=== PATIENT | female | born 1965 | race Caucasian/White ===

== ENCOUNTER 2017-09-27 11:28 | Emergency (ER) | payer SELFPAY ==
[~2017-09-27] VITALS: Ht 162.6 cm; Wt 67.7 kg
[2017-09-27 11:40] VITALS: BP 119/87; Ht 162.6 cm; Wt 67.7 kg
[2017-09-27] MEDS ORDERED: SYNTHROID25 MCG PO (11:43)
[2017-09-27] MEDS ORDERED: CIPRO HC OTIC S10 ML EACH EAR (12:18)
== END 2017-09-27 12:35 | disposition home or self-care (01) ==
LOC: D.ER 11:28
DX: H60.22 Malignant otitis externa, left ear (principal); F17.200 Nicotine dependence, unspecified, uncomplicated; E07.9 Disorder of thyroid, unspecified